=== PATIENT | female | born 1950 | race Caucasian/White ===

== ENCOUNTER 2023-12-08 12:54 | Outpatient (AMB) | payer MEDICARE, SELFPAY ==
[2023-12-08 13:13] VITALS: BMI 35.0
--- NOTE | 2023-12-08 13:13 | A.OFFVIS_ITS ---
Intake VS Expanded 12/08/23 13:13 12/10/23 14:33 Height 5 ft 2.5 in 5 ft 2 in Weight 194 lb 10.691 oz 195 lb BMI 35.0 35.7 Intake Visit Reasons: DM2 HPI Nutrition Presentation Details Pt presents for MNT for T2DM . The patient was referred by primary care provider: Dr. Hanny Aguayo,/Jone Robertson NP Patient reports working on diet modifications, she is not on DM medications as of yet and she prefers to work on diet modifications Patient brought food records Typically has breakfast One hard boiled egg, 1 slice of whole wheat bread, 1 cup of coffee with 2 tsp of sugar and 2% milk Lunch Three [place] slices of honey turkey with mustard on 1 slice of whole wheat bread and a little bit of mustard, pickles, water, and an or inch Dinner 2 cups of card and salad with lemon juice, to tbsp of home is on a Trixie bread, 1 cup of butter no squash plain, mushrooms so taking butter, 1 hamburger, water Yogurt with fruits added as a snack Reports starting to walk to 20 minutes 3 times a week Hemoglobin A1c at 7% in October 2023 REF-Hofyqwc-Mf.Jeor Equation Height 5 ft 2 in Weight 195 lb Resting Metabolic Rate 1347.71 Calculated Activity Level Sedentary Calories Needed to Maintain Weight 1617.25 Diagnosis Nutrition problem #1 food nutri know defi As related to (etiology) #1 diagnosis As evidenced by (sign/symptom) #1 elevated HgbA1c Most Recent Diabetes Results: No Data to Display Assessment & Plan Assessment & Plan (1) Type 2 diabetes mellitus: Code(s): E11.9 - Type 2 diabetes mellitus without complications Plan: Wt: 89Kg ( November 2023 ) Est kcal needs as per MSJ: 3232-5826 (40% carb, 30% protein/fat) Est fluid needs as per 25-30 ml/d: 2700 Est prot per day as per 1 g/kg bw: 89 Recommend fiber intake : 8-10 g per day and gradually increase to 25-28 g per day for women and 35-38 g for men or as tolerated Recommend sodium intake per day : less than 2000 mg Educated patient on: ( R = reviewed V = verbalizes understanding N/R = needs review N/A = not applicable * Food sources of carbohydrate, adequate serving sizes and its role in various health conditions: R * Differences between complex carbohydrates a simple carbohydrates, role of fiber in diet: R * Lean protein sources of foods: R * Differences between types of fats and role in diet (mono on saturated fat fatty acids, saturated fatty acids, trans fats): N/R * Food sources of sodium in salt and healthy modifications for heart health in kidney health: NR * Vitamins and minerals: N/R * Healthy plate method concept: R * Physical activity: Benefits a precaution: R * Hypoglycemia protocol (rule of 15): N/R * Dietary prevention of Hyperglycemia: R Patient Instructions: reduce on total carbs to 45 g following healthy plate method Keep hydrated by having water with meals and snack Continue working on physical activity as established unless otherwise specified by your Dr. Read food labels to assist you in reducing on total carb Coding Level of Care Code Nutr Indiv Intake (52721) Diagnoses Type 2 diabetes mellitus E11.9 Time Spent (min) 30
[2023-12-10 14:33] VITALS: BMI 35.7
== END 2023-12-08 14:48 | disposition home or self-care (01) ==
PROVIDERS: PCP Nurse Practitioner; Visit Provider Dietitian, Registered
DX: E11.9 Type 2 diabetes mellitus without complications (principal)

== ENCOUNTER → 2023-12-08 12:54 | Outpatient (BNVA) | payer MEDICARE, OTHER, SELFPAY | PROVIDERS: PCP Nurse Practitioner; Visit Provider Dietitian, Registered | DX: E11.9 Type 2 diabetes mellitus without complications (principal); Z71.3 Dietary counseling and surveillance | CPT/HCPCS: 97802 ==

== ENCOUNTER 2024-01-26 13:26 | Outpatient (AMB) | payer MEDICARE, SELFPAY ==
[2024-01-26 13:37] VITALS: BMI 34.3
--- NOTE | 2024-01-26 13:37 | A.OFFVIS_ITS ---
VS Expanded 01/26/24 13:37 Height 5 ft 2 in Weight 187 lb 9.814 oz BMI 34.3 Intake Visit Reasons: T2DM/LVM Nutrition Presentation Details: Pt presents for MNT for T2DM, diet controlled Pt reports walking longer 45 minutes , 3-4 times a week and feeling much more energetic Working on reducing total carbs, empty calorie carbs BS Monitoring Most Recent Diabetes Results: No Data to Display Assessment & Plan Assessment & Plan (1) Type 2 diabetes mellitus: Code(s): E11.9 - Type 2 diabetes mellitus without complications Category: Medical Plan: Wt: 89Kg ( November 2023 ), 85 kg (01/2024) Est kcal needs as per MSJ: 4065-8546 (40% carb, 30% protein/fat) Est fluid needs as per 25-30 ml/d: 2700 Est prot per day as per 1 g/kg bw: 89 Recommend fiber intake : 8-10 g per day and gradually increase to 25-28 g per day for women and 35-38 g for men or as tolerated Recommend sodium intake per day : less than 2000 mg Educated patient on: ( R = reviewed V = verbalizes understanding N/R = needs review N/A = not applicable * Food sources of carbohydrate, adequate serving sizes and its role in various health conditions: R * Differences between complex carbohydrates a simple carbohydrates, role of fiber in diet: R * Lean protein sources of foods: R * Differences between types of fats and role in diet (mono on saturated fat fatty acids, saturated fatty acids, trans fats): N/R * Food sources of sodium in salt and healthy modifications for heart health in kidney health: NR * Vitamins and minerals: N/R * Healthy plate method concept: R * Physical activity: Benefits a precaution: R * Hypoglycemia protocol (rule of 15): N/R * Dietary prevention of Hyperglycemia: R Patient Instructions: Try a meal replacement once a day keep hydrated by having water with meals /snacks Coding Level of Care Code Nutr Indiv Subseq (89888) Diagnoses Type 2 diabetes mellitus E11.9 Time Spent (min) 30
== END 2024-01-26 14:07 | disposition home or self-care (01) ==
PROVIDERS: PCP Nurse Practitioner; Visit Provider Dietitian, Registered
DX: E11.9 Type 2 diabetes mellitus without complications (principal)

== ENCOUNTER → 2024-01-26 13:26 | Outpatient (BNVA) | payer MEDICARE, OTHER, SELFPAY | PROVIDERS: PCP Nurse Practitioner; Visit Provider Dietitian, Registered | DX: E11.9 Type 2 diabetes mellitus without complications (principal) | CPT/HCPCS: 97803 ==

== ENCOUNTER 2024-03-22 13:00 | Outpatient (AMB) | payer MEDICARE, OTHER, SELFPAY ==
[2024-03-22 13:09] VITALS: BMI 33.5
--- NOTE | 2024-03-22 13:09 | A.OFFVIS_ITS ---
VS Expanded 03/22/24 13:09 Height 5 ft 2 in Weight 183 lb 3.266 oz BMI 33.5 Intake Visit Reasons: T2DM Nutrition Presentation Details: Pt presents for MNT f/u for T2DM, diet controlled Pt reports doing well, working on meal planning, including lean protein foods and fiber rich foods . Pt has questions regarding meal replacements. Pt reports most recent A1c at 6.5 % from > 7% physical activity: sedentary in the past 2 weeks, enjoys walking and taking [place] on BS Monitoring Most Recent Diabetes Results: No Data to Display Assessment & Plan Assessment & Plan (1) Type 2 diabetes mellitus: Code(s): E11.9 - Type 2 diabetes mellitus without complications Category: Medical Plan: Wt: 89Kg ( November 2023 ), 85 kg (01/2024), 83 kg (03/2024) Est kcal needs as per MSJ: 2503-6157 (40% carb, 30% protein/fat) Est fluid needs as per 25-30 ml/d: 2700 Est prot per day as per 1 g/kg bw: 89 Recommend fiber intake : 8-10 g per day and gradually increase to 25-28 g per day for women and 35-38 g for men or as tolerated Recommend sodium intake per day : less than 2000 mg Educated patient on: ( R = reviewed V = verbalizes understanding N/R = needs review N/A = not applicable * Food sources of carbohydrate, adequate serving sizes and its role in various health conditions: R * Differences between complex carbohydrates a simple carbohydrates, role of fiber in diet: R * Lean protein sources of foods: R * Differences between types of fats and role in diet (mono on saturated fat fatty acids, saturated fatty acids, trans fats): R * Food sources of sodium in salt and healthy modifications for heart health in kidney health: R * Vitamins and minerals: N/R * Healthy plate method concept: R * Physical activity: Benefits a precaution: R * Hypoglycemia protocol (rule of 15): N/R * Dietary prevention of Hyperglycemia: R Patient Instructions: Engage in physical activity, walk 3 times a week, start with 10 minutes and gradually increase to 30 -45 min or as tolerated keep hydrated by having water with meals/exercise activity Coding Level of Care Code Nutr Indiv Subseq ([id number]) Diagnoses Type 2 diabetes mellitus E11.9 Time Spent (min) 30
== END 2024-03-22 13:38 | disposition home or self-care (01) ==
PROVIDERS: PCP Nurse Practitioner; Visit Provider Dietitian, Registered
DX: E11.9 Type 2 diabetes mellitus without complications (principal)

== ENCOUNTER → 2024-03-22 13:00 | Outpatient (BNVA) | payer MEDICARE, OTHER, SELFPAY | PROVIDERS: PCP Nurse Practitioner; Visit Provider Dietitian, Registered | DX: E11.9 Type 2 diabetes mellitus without complications (principal); Z71.3 Dietary counseling and surveillance | CPT/HCPCS: 97803 ==